=== PATIENT | female | born 1985 | race Caucasian/White ===

== ENCOUNTER 2018-02-15 09:46 | Emergency (ER) | payer MEDICAID ==
[~2018-02-15] VITALS: Ht 149.9 cm; Wt 97.5 kg
[2018-02-15 09:50] VITALS: Ht 149.9 cm; Wt 97.5 kg
[2018-02-15 11:34] VITALS: BP 124/77
== END 2018-02-15 11:34 | disposition home or self-care (01) ==
LOC: ED 09:46
DX: S83.91XA Sprain of unspecified site of right knee, initial encounter (principal); E11.9 Type 2 diabetes mellitus without complications; W10.9XXA Fall (on) (from) unspecified stairs and steps, initial encounter; Y93.89 Activity, other specified; Y92.89 Other specified places as the place of occurrence of the external cause; Y99.8 Other external cause status

== ENCOUNTER 2019-09-27 21:09 | Inpatient (IN) | payer MEDICAID ==
[~2019-09-27] VITALS: Ht 149.9 cm; Wt 97.5 kg
[2019-09-27 21:14] VITALS: Ht 149.9 cm; Wt 97.5 kg
[2019-09-27 21:55] LABS: BASOPHIL % 1.1 % (0-2); PLATELET COUNT 374 x10^3mcL (130-400); RED CELL DISTRIBUTION WIDTH 13.6 % (11.5-14.5)
[2019-09-27 22:13] LABS: CALCIUM 8.7 mg/dL (8.5-10.1); CARBON DIOXIDE 22.7 mmol/L (21-32); CHLORIDE SERUM 102 mmol/L (98-107); CREATININE SERUM 0.6 mg/dL (0.6-1.0); GFR1 > 60 mL/min; GLUCOSE SERUM 310 mg/dL (74-106); POTASSIUM SERUM 3.4 mmol/L (3.5-5.1); SODIUM SERUM 137 mmol/L (136-145)
[2019-09-27 22:17] LABS: ALBUMIN 3.6 g/dL (3.4-5.0); ALKALINE PHOSPHATASE 128 U/L (46-116); ALT/SGPT 34 U/L (14-59); AST/SGOT 16 U/L (15-37); BILIRUBIN TOTAL 0.3 mg/dL (0.20-1.00); TOTAL PROTEIN, SERUM 8.2 g/dL (6.4-8.2)
[2019-09-27] MEDS ORDERED: METFORMIN HCL500 M4 PO (22:55)
[2019-09-28 00:56] VITALS: BP 142/95
[2019-09-28 05:20] VITALS: BP 116/66
[2019-09-28 07:04] LABS: CALCIUM 7.8 mg/dL (8.5-10.1); CARBON DIOXIDE 25.3 mmol/L (21-32); CHLORIDE SERUM 102 mmol/L (98-107); CREATININE SERUM 0.5 mg/dL (0.6-1.0); GFR1 > 60 mL/min; GLUCOSE SERUM 287 mg/dL (74-106); POTASSIUM SERUM 3.8 mmol/L (3.5-5.1); SODIUM SERUM 136 mmol/L (136-145)
[2019-09-28 09:15] VITALS: BP 125/78
[2019-09-28 13:09] VITALS: BP 109/80
[2019-09-28 19:30] VITALS: BP 107/64
[2019-09-29 06:16] VITALS: BP 117/72
[2019-09-29 06:48] LABS: BASOPHIL % 0.3 % (0-2); PLATELET COUNT 316 x10^3mcL (130-400); RED CELL DISTRIBUTION WIDTH 14.1 % (11.5-14.5)
[2019-09-29 06:56] LABS: CALCIUM 8.2 mg/dL (8.5-10.1); CARBON DIOXIDE 28.9 mmol/L (21-32); CHLORIDE SERUM 103 mmol/L (98-107); CREATININE SERUM 0.5 mg/dL (0.6-1.0); GFR1 > 60 mL/min; GLUCOSE SERUM 236 mg/dL (74-106); POTASSIUM SERUM 3.3 mmol/L (3.5-5.1); SODIUM SERUM 139 mmol/L (136-145)
[2019-09-29 08:25] VITALS: BP 108/65
[2019-09-29 11:22] VITALS: BP 115/78
[2019-09-29 12:50] VITALS: BP 108/65
== END 2019-09-29 14:07 | disposition home or self-care (01) | DRG 383 ==
LOC: ED 21:09 → MU 22:52
PROVIDERS: Emergency Medicine; ADMIT Internal Medicine
DX: L03.116 Cellulitis of left lower limb (principal); E11.51 Type 2 diabetes mellitus with diabetic peripheral angiopathy without gangrene; E11.65 Type 2 diabetes mellitus with hyperglycemia; Z79.84 Long term (current) use of oral hypoglycemic drugs
CPT/HCPCS: 82962; 90658; 90732; 99406; G0378; J2270; J2405; J2543; J2550; J7030; J7040; Q0092

== ENCOUNTER 2020-05-19 21:35 | Emergency (ER) | payer MEDICAID ==
[~2020-05-19] VITALS: Ht 149.9 cm; Wt 86.6 kg
[~2020-05-19 21:35] MED LIST: METFORMIN HCL500 M4 PO
[2020-05-19 22:15] VITALS: Ht 149.9 cm; Wt 86.6 kg
[2020-05-20 00:25] VITALS: BP 117/75
[2020-05-20 00:28] LABS: UA SPECIFIC GRAVITY >=1.030 (1.005-1.035); microscopic required? YES; urine erythrocyte 3+ (NEGATIVE)
[2020-05-20 00:29] LABS: BASOPHIL % 0.4 % (0-2); PLATELET COUNT 356 x10^3mcL (130-400)
== END 2020-05-20 02:00 | disposition home or self-care (01) ==
LOC: ED 21:35
PROVIDERS: Emergency Medicine
DX: O20.0 Threatened abortion (principal); E11.9 Type 2 diabetes mellitus without complications